=== PATIENT | female | born 1965 | race Caucasian/White ===

== ENCOUNTER 2018-06-13 23:35 | Emergency (ER) | payer MEDICAID ==
[2018-06-14] MEDS ORDERED: DIAZEPAM 5 MG TABLET PO ONE (00:12)
[2018-06-14] MEDS ORDERED: NAPROXEN 250 MG TABLET PO ONE (00:12)
--- NOTE | 2018-06-14 00:18 | Emergency Department Record ---
History of Present Illness - General Chief Complaint: Neck Injury/Pain Stated Complaint: NECK PAIN Time Seen by Provider: 06/14/18 00:12 Source: Patient Mode of Arrival: Ambulatory Limitations: No limitations - History of Present Illness Initial Comments: 52 yo female presents to ED for evaluation of left sided neck pain symptoms that began following a [id number] 6 months ago. Patient reports that her pain symptoms have begun progressively worsening for the past 6 months. Patient denies numbness, tingling, or extremity weakness symptoms. Patient denies health problems other than HTN and GERD at her baseline. MD Complaint: Neck injury, Neck pain Onset/Timin -: Month(s) Place: Home Severity: Constant, Similar to prior neck pain Severity scale (1-10): 9 Quality: Stabbing Consistency: Constant Improves With: None Worsens With: Movement of neck Associated Symptoms: None Treatments Prior to Arrival: None - Related Data Home Medications Medication Instructions Recorded Confirmed Last Taken Buspirone HCl [Buspar] 5 mg PO DAILY 06/13/18 06/13/18 Unknown Duloxetine HCl [Cymbalta] 60 mg PO DAILY 06/13/18 06/13/18 Unknown Furosemide [Lasix] 40 mg PO DAILY 06/13/18 06/13/18 Unknown Losartan Potassium 25 mg PO DAILY 06/13/18 06/13/18 Unknown Pantoprazole Sodium [Protonix] 40 mg PO DAILY 06/13/18 06/13/18 Unknown Potassium Chloride [Klor-Con 10] 10 meq PO DAILY 06/13/18 06/13/18 Unknown Previous Rx's Medication Instructions Recorded Naproxen [Naprosyn] 500 mg PO Q12H PRN #30 tab 06/14/18 Allergies Allergy/AdvReac Type Severity Reaction Status Date / Time venom-honey bee Allergy Mild SWELLING Verified 12/28/15 11:23 [bee venom (honey bee)] (GENERAL) codeine AdvReac TINNITIS Verified 06/13/18 23:44 Travel Screening - Travel/Exposure Within Last 30 Days Have you traveled within the last 30 days?: No Review of Systems Constitutional: Denies: Chills, Fever, Malaise, Night sweats Eyes: Denies: Eye discharge, Eye pain ENT: Denies: Congestion, Ear pain, Epistaxis Respiratory: Denies: Cough, Dyspnea Cardiovascular: Denies: Chest pain, Dyspnea on exertion Endocrine: Denies: Fatigue, Heat or cold intolerance Gastrointestinal: Denies: Abdominal pain, Nausea, Vomiting Genitourinary: Denies: Incontinence, Retention Musculoskeletal: Reports: Neck pain. Denies: Arthralgia, Back pain, Gout, Joint swelling Skin: Denies: Bruising, Change in color Neurological: Denies: Abnormal gait, Confusion, Headache, Seizure Psychiatric: Denies: Anxiety Hematological/Lymphatic: Denies: Anemia, Blood Clots Past Medical History - SOCIAL HISTORY Smoking Status: Former smoker Alcohol Use: None Drug Use: None - RESPIRATORY Hx Respiratory Disorders: Yes Hx Bronchitis: Yes (2 years ago) Hx Sleep Apnea: Yes Hx of CPAP: Yes - CARDIOVASCULAR Hx Cardio Disorders: Yes Hx CHF: Yes Hx Palpitations: Yes (w/increase coffe consumption & stress) Comment:: saw cariologist who said it was nothing but stress and excess coffee - NEURO Hx Neuro Disorders: Yes Hx of Migraines: Yes (2-3/month) - GI Hx GI Disorders: Yes Hx Reflux: Yes Hx Nausea/Vomiting: Yes (nausea often, occasional vomitting 3-4 times/month) - Hx Genitourinary Disorders: Yes Hx Bladder Problem: Yes (stress incontinence) - ENDOCRINE Hx Endocrine Disorders: No - MUSCULOSKELETAL Hx Musculoskeletal Disorders: Yes Hx Arthritis: Yes (hips) Comment:: muscle spasms - PSYCH Hx Psych Problems: No - HEMATOLOGY/ONCOLOGY Hx Hematology/Oncology Disorders: No Family Medical History Any Significant Family History?: Yes Hx Cancer: Father, Grandparents *Cancer Comment: renal, bladder Hx Diabetes: Father Hx Heart Disease: Father *Heart Comment: CHF Hx HTN: Father Hx Resp Disorders: Mother *Resp Comment: COPD Physical Exam - General General Appearance: Alert, Oriented x3, Cooperative, Mild distress Limitations: No limitations - Head Head exam: Atraumatic, Normocephalic, Normal inspection Head exam detail: negative: Abrasion, Contusion, Chow's sign, General tenderness, Hematoma, Laceration - Eye Eye exam: Normal appearance. negative: Conjunctival injection, Periorbital swelling, Periorbital tenderness, Scleral icterus - ENT Ear exam: negative: Auricular hematoma, Auricular trauma Nasal Exam: negative: Active bleeding, Discharge, Dried blood, Foreign body Mouth exam: negative: Drooling, Laceration, Muffled voice, Tongue elevation - Neck Neck exam: Tenderness, Other (TTP along the para-cervical muscles of the left, limited ROM due to pain.). negative: Lymphadenopathy, Meningismus - Respiratory Respiratory exam: Normal lung sounds bilaterally. negative: Rales, Respiratory distress, Rhonchi, Stridor - Cardiovascular Cardiovascular Exam: Regular rate, Normal rhythm, Normal heart sounds - GI/Abdominal GI/Abdominal exam: Soft. negative: Rebound, Rigid, Tenderness - Rectal Rectal exam: Deferred - exam: Deferred - Extremities Extremities exam: Normal inspection, Other (Pre Sales Architect strength 5/5 and symmtric bilaterally). negative: Calf tenderness, Pedal edema, Tenderness - Back Back exam: Denies: CVA tenderness (R), CVA tenderness (L) - Neurological Neurological exam: Alert, Normal gait, Oriented X3 - Psychiatric Psychiatric exam: Normal affect, Normal mood - Skin Skin exam: Normal color. negative: Abrasion Type of lesion: negative: abrasion Course Vital Signs 06/13/18 23:42 Temperature 97.8 F Pulse Rate [ 72 Pulse Ox Probe] Respiratory 18 Rate Blood Pressure 127/74 [Left Arm] Pulse Ox 98 - Reevaluation(s) Reevaluation #1: 06/14/18 00:18 Patient was seen and examined, denies evaluation following her injury. Patient denies imaging following her injury. Will obtain CT imaging of the neck, will administer analgesia while awaiting imaging. Reevaluation #2: 06/14/18 01:08 CT Cervical Spine: No acute process identified Patient reassessed and reports improvement in her pain symptoms. Patient has no evidence for cervical nerve impingement on examination. Patient appears stable for discharge at this time with instructions for follow- up. Disposition Disposition: Discharge Clinical Impression: Chronic neck pain Disposition: Home, Self-Care Condition: (2) Stable Instructions: Cervical Sprain (ED) Additional Instructions: Return to ED if your symptoms worsen or if you have any concerns. Naprosyn as directed. Follow-up with your family doctor in 3-5 days as directed. Prescriptions: Naproxen [Naprosyn] 500 mg PO Q12H PRN #30 tab.dr BALES Reason: Pain - Mild To Moderate (1-7) Forms: Patient Portal Access Time of Disposition: 01:11 Quality - Quality Measures Quality Measures: N/A - Blood Pressure Screening Does Patient Have Any of the Following: No Blood Pressure Classification: Pre-Hypertensive BP Reading Systolic Measurement: 127 Diastolic Measurement: 74 Screening for High Blood Pressure: < Pre-Hypertensive BP, F/U Documented > [ G8950] Pre-Hypertensive Follow-up Interventions: Referral to alternative/primary care provider.
--- NOTE | 2018-06-16 09:17 | CT SCAN REPORT ---
EXAM: CT SCAN OF THE CERVICAL SPINE WITHOUT CONTRAST HISTORY: LEFT POSTERIOR NECK PAIN STATUS POST INJURY. TECHNIQUE: Standard CT imaging of the cervical spine was performed in the axial plane without contrast. Additional coronal and sagittal reformatted images were also performed. Comparison: None. Encounter: Initial. FINDINGS: There is mild straightening of the cervical lordosis. The craniocervical and cervicothoracic junctions are normal. There is no acute fracture, subluxation, or prevertebral soft tissue swelling. There is mild to moderate disk space narrowing at the C5-C6 and C6-C7 levels with associated end plate degenerative change. The remaining disk spaces and vertebral body heights are maintained. There is no central canal stenosis or significant neural foraminal narrowing. There are numerous nonenlarged and a few borderline enlarged lymph nodes within the anterior cervical chains bilaterally. A 1.2 x 1.6 cm lymph node is present within the right internal jugular chain at the level of the mandibular angle. There is a 1 x 1.8 cm lymph node at the same position on the left. The etiology is uncertain. The superior mediastinum and lung apices appear normal. IMPRESSION: 1. NO ACUTE CERVICAL SPINE PATHOLOGY. 2. MULTILEVEL DEGENERATIVE DISK DISEASE. 3. NONSPECIFIC CERVICAL LYMPHADENOPATHY. JOB NUMBER: [id number] [facility]
== END 2018-06-14 01:24 | disposition home or self-care (01) ==
LOC: ER 23:35
DX: G89.21 Chronic pain due to trauma (principal); M54.2 Cervicalgia; I10 Essential (primary) hypertension; I50.9 Heart failure, unspecified; W01.0XXA Fall on same level from slipping, tripping and stumbling without subsequent striking against object, initial encounter; Y92.009 Unspecified place in unspecified non-institutional (private) residence as the place of occurrence of the external cause; Z87.891 Personal history of nicotine dependence
CPT/HCPCS: 99283 ×2; 72125; J3490

== ENCOUNTER 2018-07-12 09:17 | Emergency (ER) | payer MEDICAID ==
[2018-07-12] MEDS ORDERED: 0.9 % SODIUM CHLORIDE 1,000 ML BAG IV ONE (09:48)
[2018-07-12] MEDS ORDERED: PROMETHAZINE HCL 12.5 MG in 0.9 % SODIUM CHLORIDE 100ML 100 ML IVPB ONE (09:49)
--- NOTE | 2018-07-12 09:54 | Emergency Department Record ---
History of Present Illness - General Chief complaint: Nausea, Vomiting, Diarrhea Stated complaint: N/D Time Seen by Provider: 07/12/18 09:42 Source: Patient Mode of Arrival: Ambulatory Limitations: No limitations - History of Present Illness Initial comments: pt has been having diarrhea for a week. she went to a cookout 8 days ago and ate wild rabbit and turkey. on friday she ate pork from a recently slaughtered pig and venison. she has nausea. she states she has diarrhea every time she eats and that she has been on the BRAT diet for days. MD complaint: Diarrhea, Nausea Onset/Timin -: Week(s) Description of Vomiting: Watery Description of Diarrhea: Water Associated Abdominal Pain: Yes Consistency: Constant Improves with: None Worsens with: Eating Context: Possible food poisoning Associated Symptoms: Nausea/vomiting - Related Data Previous Rx's Medication Instructions Recorded Metronidazole [Flagyl] 500 mg PO Q8HR #30 tablet 07/12/18 Promethazine HCl [Phenergan] 12.5 mg PO BID #10 tablet 07/12/18 Allergies Allergy/AdvReac Type Severity Reaction Status Date / Time venom-honey bee Allergy Mild SWELLING Verified 07/12/18 09:29 [bee venom (honey bee)] (GENERAL) codeine AdvReac TINNITIS Verified 07/12/18 09:29 Travel Screening - Travel/Exposure Within Last 30 Days Have you traveled within the last 30 days?: No Review of Systems Reviewed: No additional complaints except as noted below Constitutional: Reports: As per HPI. Denies: Chills, Fever, Malaise, Night sweats, Weakness, Weight change Eyes: Reports: As per HPI. Denies: Eye discharge, Eye pain, Photophobia, Vision change ENT: Reports: As per HPI. Denies: Congestion, Dental pain, Ear pain, Epistaxis , Hearing loss, Throat pain Respiratory: Reports: As per HPI. Denies: Cough, Dyspnea, Hemoptysis, Stridor, Wheezes Cardiovascular: Reports: As per HPI. Denies: Arrhythmia, Chest pain, Dyspnea on exertion, Edema, Murmurs, Orthopnea, Palpitations, Paroxysmal nocturnal dyspnea, Rheumatic Fever, Syncope Endocrine: Reports: As per HPI. Denies: Fatigue, Heat or cold intolerance, Polydipsia, Polyuria Gastrointestinal: Reports: As per HPI, Abdominal pain, Diarrhea. Denies: Constipation, Hematemesis, Hematochezia, Melena, Nausea, Vomiting Genitourinary: Reports: As per HPI. Denies: Abnormal menses, Discharge, Dyspareunia, Dysuria, Frequency, Hematuria, Incontinence, Retention, Urgency Musculoskeletal: Reports: As per HPI. Denies: Arthralgia, Back pain, Gout, Joint swelling, Myalgia, Neck pain Skin: Reports: As per HPI. Denies: Bruising, Change in color, Change in hair/ nails, Lesions, Pruritus, Rash Neurological: Reports: As per HPI. Denies: Abnormal gait, Confusion, Headache, Numbness, Paresthesias, Seizure, Tingling, Tremors, Vertigo, Weakness Psychiatric: Reports: As per HPI. Denies: Anxiety, Auditory hallucinations, Depression, Homicidal thoughts, Suicidal thoughts, Visual hallucinations Hematological/Lymphatic: Reports: As per HPI. Denies: Anemia, Blood Clots, Easy bleeding, Easy bruising, Swollen glands Past Medical History - SOCIAL HISTORY Smoking Status: Former smoker Alcohol Use: None Drug Use: None - RESPIRATORY Hx Respiratory Disorders: Yes Hx Bronchitis: Yes (2 years ago) Hx Sleep Apnea: Yes Hx of CPAP: Yes - CARDIOVASCULAR Hx Cardio Disorders: Yes Hx CHF: Yes Hx Palpitations: Yes - NEURO Hx Neuro Disorders: Yes Hx of Migraines: Yes (2-3/month) - GI Hx GI Disorders: Yes Hx Reflux: Yes Hx Nausea/Vomiting: Yes - Hx Genitourinary Disorders: Yes Hx Bladder Problem: Yes (stress incontinence) - ENDOCRINE Hx Endocrine Disorders: No - MUSCULOSKELETAL Hx Musculoskeletal Disorders: Yes Hx Arthritis: Yes (hips) - PSYCH Hx Psych Problems: No - HEMATOLOGY/ONCOLOGY Hx Hematology/Oncology Disorders: No Family Medical History Any Significant Family History?: Yes Hx Cancer: Father, Grandparents *Cancer Comment: renal, bladder Hx Diabetes: Father Hx Heart Disease: Father *Heart Comment: CHF Hx HTN: Father Hx Resp Disorders: Mother *Resp Comment: COPD Physical Exam - General General Appearance: Alert, Oriented x3, Cooperative, Mild distress - Head Head exam: Normal inspection - Eye Eye exam: Normal appearance, PERRL, EOMI Pupils: Normal accommodation - ENT ENT exam: Normal exam, Mucous membranes dry, Normal external ear exam, Normal orophraynx Ear exam: Normal external inspection. negative: External canal tenderness Nasal Exam: Normal inspection. negative: Discharge, Sinus tenderness Mouth exam: Normal external inspection, Tongue normal Teeth exam: Normal inspection. negative: Dental caries Throat exam: Normal inspection. negative: Tonsillar erythema, Tonsillar exudate - Neck Neck exam: Normal inspection, Full ROM. negative: Tenderness - Respiratory Respiratory exam: Normal lung sounds bilaterally. negative: Respiratory distress - Cardiovascular Cardiovascular Exam: Regular rate, Normal rhythm, Normal heart sounds - GI/Abdominal GI/Abdominal exam: Soft, Hyperactive bowel sounds. negative: Tenderness - Rectal Rectal exam: Deferred - exam: Deferred - Extremities Extremities exam: Normal inspection, Full ROM, Normal capillary refill. negative: Tenderness - Back Back exam: Reports: Normal inspection, Full ROM. Denies: Muscle spasm, Rash noted, Tenderness - Neurological Neurological exam: Alert, CN II-XII intact, Normal gait, Oriented X3 - Psychiatric Psychiatric exam: Normal affect, Normal mood - Skin Skin exam: Dry, Intact, Normal color, Warm Course Vital Signs 07/12/18 09:24 Temperature 97.5 F L Pulse Rate 83 Respiratory 18 Rate Blood Pressure 136/82 Pulse Ox 97 - Reevaluation(s) Reevaluation #1: 07/12/18 13:13 pts stool was odorous, similar to c-diff. since c-diff is not back till tomorrow i will treat for c-diff Medical Decision Making - Lab Data Result diagrams: 07/12/18 09:03 07/12/18 09:03 Disposition Disposition: Discharge Clinical Impression: Infectious diarrhea in adult patient Disposition: Home, Self-Care Condition: (1) Good Instructions: Acute Nausea and Vomiting (ED), Acute Diarrhea (ED), Clostridium Difficile Infection (ED) Additional Instructions: follow up with family doctor this week. return sooner if worse. push fluids. brat diet. Prescriptions: Metronidazole [Flagyl] 500 mg PO Q8HR #30 tablet Promethazine HCl [Phenergan] 12.5 mg PO BID #10 tablet Forms: Patient Portal Access Quality - Quality Measures Quality Measures: N/A - Blood Pressure Screening Does Patient Have Any of the Following: No Blood Pressure Classification: Pre-Hypertensive BP Reading Systolic Measurement: 136 Diastolic Measurement: 82 Screening for High Blood Pressure: < Pre-Hypertensive BP, F/U Documented > [ G8950] Pre-Hypertensive Follow-up Interventions: Follow-up with rescreen every year.
[2018-07-12 09:56] LABS: BASO % 1.2 % (0-6); EOS % 8.1 % (0-6); GRAN % 61.6 % (47-80); HEMATOCRIT 43.1 % (35.0-47.0); HEMOGLOBIN 13.5 gm/dl (11.6-16.0); LYMPH % 21.4 % (16-45); MEAN CELL VOLUME 86.7 fl (81-97); MEAN CORPUSCULAR HEMOGLOBIN 27.2 pg (27-33); MEAN CORPUSCULAR HGB CONC 31.3 g/dl (32-36); MEAN PLATELET VOLUME 8.4 fl (7.4-10.4); MONO % 7.7 % (0-9); PLATELET COUNT 372 K/uL (130-400); RED BLOOD COUNT 4.97 M/uL (3.80-5.40); RED CELL DISTRIBUTION WIDTH 14.1 % (11.5-14.5); WHITE BLOOD COUNT W/O DIFF 6.5 K/uL (4.2-12.2)
[2018-07-12 10:12] LABS: BLOOD UREA NITROGEN 13 mg/dL (6-20); CREATININE 0.7 mg/dL (0.5-0.9); EST GLOMERULAR FILTRATION RATE > 60 mL/min
[2018-07-12 10:13] LABS: TOTAL PROTEIN 6.4 g/dL (6.6-8.7)
[2018-07-12 10:15] LABS: GLUCOSE,RANDOM 90 mg/dL (74-109)
[2018-07-12 10:17] LABS: ALB/GLOB RATIO 1.4 (1.1-1.8); ALBUMIN 3.7 g/dL (4.0-5.0); ALT/SGPT 28 U/L (<33); AST/SGOT 24 U/L (10.0-35.0)
[2018-07-12 10:18] LABS: ALKALINE PHOSPHATASE 58 U/L (35-104); LIPASE 12 U/L (13-60)
[2018-07-12 10:32] LABS: URINE APPEARANCE CLEAR; URINE BILIRUBIN NEGATIVE (NEGATIVE); URINE BLOOD NEGATIVE (NEGATIVE); URINE COLOR YELLOW; URINE GLUCOSE (UA) NEGATIVE (NEGATIVE); URINE KETONE NEGATIVE (NEGATIVE); URINE LEUKOCYTE ESTERASE TRACE (NEGATIVE); URINE NITRITE NEGATIVE (NEGATIVE); URINE PROTEIN NEGATIVE (NEGATIVE); URINE UROBILINOGEN 0.2 E.U./dL (0.20 - 1.00)
[2018-07-12 10:48] LABS: URINE BACTERIA NONE SEEN; URINE RBC 0 - 2 (NONE SEEN)
[2018-07-12 11:19] LABS: CRYPTOSPORIDIUM PARVUM ANTIGEN NOT DETECTED (NOT DETECT); GIARDIA LAMBLIA ANTIGEN NOT DETECTED (NOT DETECT); ROTOVIRUS NOT DETECTED (NOT DETECT)
== END 2018-07-12 13:40 | disposition home or self-care (01) ==
LOC: ER 09:17
DX: A09 Infectious gastroenteritis and colitis, unspecified (principal); R11.2 Nausea with vomiting, unspecified; I50.9 Heart failure, unspecified; Z87.891 Personal history of nicotine dependence
CPT/HCPCS: 80053; 81001; 82272; 83690; 85025; 87329; 87425; 87427; 89055; 96361; 96365; 99284; J2550; J7030

== ENCOUNTER 2018-12-05 14:12 | Emergency (ER) | payer MEDICAID ==
[2018-12-05 14:46] LABS: INFLUENZA A NEGATIVE (NEGATIVE); INFLUENZA B NEGATIVE (NEGATIVE)
[2018-12-05 15:12] LABS: BASO % 1.5 % (0-6); EOS % 1.3 % (0-6); HEMATOCRIT 41.9 % (35.0-47.0); HEMOGLOBIN 13.3 gm/dl (11.6-16.0); LYMPH % 27.9 % (16-45); MEAN CORPUSCULAR HEMOGLOBIN 27.3 pg (27-33); MEAN CORPUSCULAR HGB CONC 31.7 g/dl (32-36); MEAN PLATELET VOLUME 8.6 fl (7.4-10.4); MONO % 12.3 % (0-9); PLATELET COUNT 335 K/uL (130-400); RED BLOOD COUNT 4.87 M/uL (3.80-5.40); RED CELL DISTRIBUTION WIDTH 14.4 % (11.5-14.5); WHITE BLOOD COUNT W/O DIFF 4.7 K/uL (4.2-12.2)
--- NOTE | 2018-12-05 15:44 | Emergency Department Record ---
History of Present Illness - General Chief complaint: Flu Like Symptoms Stated complaint: WANTS TO BE CHECK FOR THE FLU Time Seen by Provider: 12/05/18 14:38 Source: Patient Mode of Arrival: Ambulatory Limitations: No limitations - History of Present Illness Initial comments: pt has a cough, sore throat, congestion, body aches. she thinks she has the flu. 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 Complaint: Generalized weakness Onset/Timin -: Days(s) Location: Generalized Severity: Moderate Severity scale (1-10): 5 Quality: Aching Consistency: Constant Improves with: Medication, Rest Worsens with: Exertion Associated Symptoms: Fever/chills, Headaches, Myalgias - [place] Coma Scale Eye Response: (4) Open spontaneously Motor Response: (6) Obeys commands Verbal Response: (5) Oriented Tawana Total: 15 - Related Data Allergies Allergy/AdvReac Type Severity Reaction Status Date / Time venom-honey bee Allergy Mild SWELLING Verified 12/05/18 14:31 [bee venom (honey bee)] (GENERAL) codeine AdvReac TINNITIS Verified 12/05/18 14:31 Travel Screening - Travel/Exposure Within Last 30 Days Have you traveled within the last 30 days?: No - Travel/Exposure Within Last Year Have you traveled outside the [place] in the last year?: No - Additonal Travel Details Have you been exposed to anyone with a communicable illness?: No - Travel Symptoms Symptom Screening: None Review of Systems Reviewed: No additional complaints except as noted below Constitutional: Reports: As per HPI. Denies: Chills, Fever, Malaise, Night sweats, Weakness, Weight change Eyes: Reports: As per HPI. Denies: Eye discharge, Eye pain, Photophobia, Vision change ENT: Reports: As per HPI. Denies: Congestion, Dental pain, Ear pain, Epistaxis , Hearing loss, Throat pain Respiratory: Reports: As per HPI. Denies: Cough, Dyspnea, Hemoptysis, Stridor, Wheezes Cardiovascular: Reports: As per HPI. Denies: Arrhythmia, Chest pain, Dyspnea on exertion, Edema, Murmurs, Orthopnea, Palpitations, Paroxysmal nocturnal dyspnea, Rheumatic Fever, Syncope Endocrine: Reports: As per HPI. Denies: Fatigue, Heat or cold intolerance, Polydipsia, Polyuria Gastrointestinal: Reports: As per HPI. Denies: Abdominal pain, Constipation, Diarrhea, Hematemesis, Hematochezia, Melena, Nausea, Vomiting Genitourinary: Reports: As per HPI. Denies: Abnormal menses, Discharge, Dyspareunia, Dysuria, Frequency, Hematuria, Incontinence, Retention, Urgency Musculoskeletal: Reports: As per HPI. Denies: Arthralgia, Back pain, Gout, Joint swelling, Myalgia, Neck pain Skin: Reports: As per HPI. Denies: Bruising, Change in color, Change in hair/ nails, Lesions, Pruritus, Rash Neurological: Reports: As per HPI. Denies: Abnormal gait, Confusion, Headache, Numbness, Paresthesias, Seizure, Tingling, Tremors, Vertigo, Weakness Psychiatric: Reports: As per HPI. Denies: Anxiety, Auditory hallucinations, Depression, Homicidal thoughts, Suicidal thoughts, Visual hallucinations Hematological/Lymphatic: Reports: As per HPI. Denies: Anemia, Blood Clots, Easy bleeding, Easy bruising, Swollen glands Past Medical History - SOCIAL HISTORY Smoking Status: Former smoker Alcohol Use: None Drug Use: None - RESPIRATORY Hx Respiratory Disorders: Yes Hx Bronchitis: Yes (2 years ago) Hx Sleep Apnea: Yes Hx of CPAP: Yes - CARDIOVASCULAR Hx Cardio Disorders: Yes Hx CHF: Yes Hx Palpitations: Yes - NEURO Hx Neuro Disorders: Yes Hx of Migraines: Yes (2-3/month) - GI Hx GI Disorders: Yes Hx Reflux: Yes Hx Nausea/Vomiting: Yes - Hx Genitourinary Disorders: Yes Hx Bladder Problem: Yes (stress incontinence) - ENDOCRINE Hx Endocrine Disorders: No - MUSCULOSKELETAL Hx Musculoskeletal Disorders: Yes Hx Arthritis: Yes (hips) - PSYCH Hx Psych Problems: No - HEMATOLOGY/ONCOLOGY Hx Hematology/Oncology Disorders: No Family Medical History Any Significant Family History?: Yes Hx Cancer: Father, Grandparents *Cancer Comment: renal, bladder Hx Diabetes: Father Hx Heart Disease: Father *Heart Comment: CHF Hx HTN: Father Hx Resp Disorders: Mother *Resp Comment: COPD Physical Exam - General General Appearance: Alert, Oriented x3, Cooperative, Mild distress - Head Head exam: Normal inspection - Eye Eye exam: Normal appearance, PERRL, EOMI Pupils: Normal accommodation - ENT ENT exam: Normal exam, Mucous membranes moist, Normal external ear exam, Normal orophraynx, TM's normal bilaterally Ear exam: Normal external inspection. negative: External canal tenderness Nasal Exam: Normal inspection. negative: Discharge, Sinus tenderness Mouth exam: Normal external inspection, Tongue normal Teeth exam: Normal inspection. negative: Dental caries Throat exam: Tonsillar erythema. negative: Tonsillar exudate - Neck Neck exam: Normal inspection, Full ROM. negative: Tenderness - Respiratory Respiratory exam: Normal lung sounds bilaterally. negative: Respiratory distress - Cardiovascular Cardiovascular Exam: Regular rate, Normal rhythm, Normal heart sounds - GI/Abdominal GI/Abdominal exam: Soft, Normal bowel sounds. negative: Tenderness - Rectal Rectal exam: Deferred - exam: Deferred - Extremities Extremities exam: Normal inspection, Full ROM, Normal capillary refill. negative: Tenderness - Back Back exam: Reports: Normal inspection, Full ROM. Denies: Muscle spasm, Rash noted, Tenderness - Neurological Neurological exam: Alert, Normal gait, Oriented X3, Reflexes normal - Psychiatric Psychiatric exam: Normal affect, Normal mood - Skin Skin exam: Dry, Intact, Normal color, Warm Course Vital Signs 12/05/18 14:32 Temperature 98.2 F Pulse Rate 80 Respiratory 20 Rate Blood Pressure 155/95 Pulse Ox 97 Medical Decision Making - Lab Data Result diagrams: 12/05/18 15:00 Lab Results 12/05/18 12/05/18 12/05/18 Range/Units 14:24 15:00 15:00 WBC 4.7 (4.2-12.2) K/uL RBC 4.87 (3.80-5.40) M/uL Hgb 13.3 (11.6-16.0) gm/dl Hct 41.9 (35.0-47.0) % MCV 86.0 (81-97) fl MCH 27.3 (27-33) pg MCHC 31.7 L (32-36) g/dl RDW 14.4 (11.5-14.5) % Plt Count 335 (130-400) K/uL MPV 8.6 (7.4-10.4) fl Gran % 57.0 (47-80) % Lymphocytes % 27.9 (16-45) % Monocytes % 12.3 H (0-9) % Eosinophils % 1.3 (0-6) % Basophils % 1.5 (0-6) % Influenza Type A Ag Negative (NEGATIVE) Influenza Type B Ag Negative (NEGATIVE) Group A Strep Screen Negative (NEGATIVE) Disposition Disposition: Discharge Clinical Impression: Viral syndrome Disposition: Home, Self-Care Condition: (1) Good Instructions: Viral Syndrome (ED) Additional Instructions: follow up with family doctor. return sooner if worse. tylenol and motrin as needed Quality - Quality Measures Quality Measures: N/A - Blood Pressure Screening Does Patient Have Any of the Following: Active Dx of HTN Blood Pressure Classification: Hypertensive Reading Systolic Measurement: 155 Diastolic Measurement: 95 Screening for High Blood Pressure: Patient Exclusion, Hx of HTN [G9744]
--- NOTE | 2018-12-07 20:29 | RADIOLOGY REPORT ---
EXAM: CHEST 2 VIEWS HISTORY: VIRAL SYNDROME. TECHNIQUE: Two views of the chest are obtained. There are no relevant prior studies. FINDINGS: The heart and pulmonary vessels are normal. No infiltrate or effusion is identified. There is no evidence of lung mass or mediastinal adenopathy. IMPRESSION: NEGATIVE CHEST. JOB [facility]BER: [id number] [facility]
== END 2018-12-05 15:51 | disposition home or self-care (01) ==
LOC: ER 14:12
DX: B34.9 Viral infection, unspecified (principal); R05 Cough; J02.9 Acute pharyngitis, unspecified; R53.1 Weakness; I10 Essential (primary) hypertension; I50.9 Heart failure, unspecified; Z87.891 Personal history of nicotine dependence
CPT/HCPCS: 71046; 85025; 87400; 87880; 99283; 99284